=== PATIENT | female | born 1980 | race Two or more races ===

== ENCOUNTER 2018-07-16 03:09 | Inpatient (IN) | payer BC ==
[2018-07-16] MEDS ORDERED: Sodium Chloride 0.9% 10 ML Syringe FLUSH PRN (03:41)
[2018-07-16] MEDS ORDERED: Tranexamic Acid 1,000 MG in Sodium Chloride 0.9% 100 ML IV PRN (03:41)
[2018-07-16] MEDS ORDERED: Methylergonovine 0.2 MG/1 ML Amp IM PRN (03:41)
[2018-07-16] MEDS ORDERED: Carboprost Tromethamine 250 MCG/1 ML Amp IM PRN (03:41)
[2018-07-16] MEDS ORDERED: Nalbuphine 10 MG/1 ML Vial IVPUSH PRN (03:41)
[2018-07-16] MEDS ORDERED: Terbutaline 1 MG/ML SDV SUBCUT PRN (03:41)
[2018-07-16] MEDS ORDERED: Water For Irrigation,Sterile 1,000 ML Container IRR PRN (03:41)
[2018-07-16] MEDS ORDERED: Misoprostol 200 MCG Tab PO PRN (03:41)
[2018-07-16] MEDS ORDERED: Lidocaine 1% 50 ML MDV INJECT PRN (03:41)
[2018-07-16] MEDS ORDERED: Sodium Chloride 0.9% 2.5 ML Syringe FLUSH PRN (03:41)
[2018-07-16] MEDS ORDERED: Oxytocin/0.9 % Sodium Chloride 30 UNIT/500 ML BAG IV SCH ×2 (03:45)
[2018-07-16] MEDS: Misoprostol 25 MCG (1/4 of 100 MCG) Tab VAG PRN ×4 (04:29→17:49)
[2018-07-16] MEDS: Misoprostol 25 MCG (1/4 of 100 MCG) Tab PO PRN ×4 (04:32→17:52)
[2018-07-16] MEDS ORDERED: hydrOXYzine Pamoate 25 MG Cap PO ONE (04:56)
--- NOTE | 2018-07-16 07:41 | PCM.LDHP ---
L&D History of Present Illness - General Date of Service: 07/16/18 Admit Problem/Dx: Patient Status Order with Admit Dx/Problem 07/16/18 03:41 Patient Status [ADT] Routine Admission Diagnosis/Problem Admission Diagnosis/Problem 07/16/18 07:36 37yo EDC 07/21/2018 39 2/7wks AB+, RI, GBS neg. IOL due to GDMA2. Source of Information: Patient History Limitations: Reports: No Limitations - History of Present Illness Improves with: Reports: None Worsens with: Reports: None Associated Symptoms: Reports: N - Related Data Allergies/Adverse Reactions: Allergies Allergy/AdvReac Type Severity Reaction Status Date / Time No Known Allergies Allergy Verified 07/16/18 03:39 Home Medications: Home Meds Pnv No.122/Iron/Folic Acid [ Multi Tablet] 1 tab PO DAILY 05/28/18 [ History] glyBURIDE [Glyburide] 2.5 mg PO TID 06/18/18 [History] Acetaminophen [Tylenol Extra Strength] 1 - 2 tab PO PRN 07/16/18 [History] Past Medical History - Past Health History Medical/Surgical History: Denies Medical/Surgical History HEENT History: Reports: Impaired Vision, Other (See Below) Other HEENT History: wears glasses CHIEF GAUGER History: Reports: , Spontaneous Psychiatric History: Reports: Depression Endocrine/Metabolic History: Reports: Diabetes, Gestational, Obesity/BMI 30+ - Infectious Disease History Infectious Disease History: Reports: Chicken Pox - Past Surgical History HEENT Surgical History: Reports: None Endocrine Surgical History: Reports: None Social & Family History - Family History Family Medical History: Noncontributory Cardiac: Reports: Other (See Below) Other Cardiac Family History: heart disease Respiratory: Reports: Asthma OBGYN: Reports: Neurological: Reports: CVA Endocrine/Metabolic: Reports: Diabetes, type II Oncologic: Reports: Other (See Below) Other Oncologic Family History: grandmother has cancer in her spine - Tobacco Use Smoking Status *Q: Never Smoker - Caffeine Use Caffeine Use: Reports: Coffee, Energy Drinks, Tea - Recreational Drug Use Recreational Drug Use: No H&P Review of Systems - Review of Systems: Review Of Systems: See Below General: Reports: No Symptoms HEENT: Reports: No Symptoms Pulmonary: Reports: No Symptoms Cardiovascular: Reports: No Symptoms Gastrointestinal: Reports: No Symptoms Genitourinary: Reports: No Symptoms Musculoskeletal: Reports: No Symptoms Skin: Reports: No Symptoms Psychiatric: Reports: No Symptoms Neurological: Reports: No Symptoms Hematologic/Lymphatic: Reports: No Symptoms Immunologic: Reports: No Symptoms L&D Exam - Exam Exam: See Below - Vital Signs Weight: 121.109 kg - OB Specific Contraction Intensity: Mild Movement: Active Heart Tones: Present Heart Rate (FHR) Variability: Moderate (6-25 bmp) Presentation: Vertex - Sommers Score Sommers Score Cervix Position: Posterior Sommers Score Consistency: Soft Sommers Score Effacement: 31-50% Sommers Score Dilation: 1-2 cm Sommers Score 's Station: -2 Sommers Score Total: 5 - Exam General: Alert, Oriented HEENT: Hearing Intact Lungs: Clear to Auscultation, Normal Respiratory Effort Cardiovascular: Regular Rate, Regular Rhythm, Normal S1, Normal S2 GI/Abdominal Exam: Soft, Non-Tender Rectal Exam: Deferred Genitourinary: Normal external exam, Cervical dilitation Back Exam: Normal Inspection, Full Range of Motion Extremities: Normal Inspection, Normal Range of Motion, Non-Tender, No Pedal Edema, Normal Capillary Refill Skin: Warm, Dry, Intact Neurological: Cranial Nerves Intact, Reflexes Equal Bilateral, Strength Equal Bilateral, Normal Speech, Normal Tone Psychiatric: Alert, Normal Affect, Normal Mood - Patient Data Lab Results Last 24 hrs: Laboratory Results - last 24 hr 07/16/18 07/16/18 07/16/18 Range/Units 03:55 03:55 04:37 WBC 10.46 (4.0-11.0) K/uL RBC 4.57 (4.30-5.90) M/uL Hgb 11.5 L (12.0-16.0) g/dL Hct 35.7 L (36.0-46.0) % MCV 78.1 L (80.0-98.0) fL MCH 25.2 L (27.0-32.0) pg MCHC 32.2 (31.0-37.0) g/dL RDW Std Deviation 44.8 (28.0-62.0) fl RDW Coeff of Lisa 16 H (11.0-15.0) % Plt Count 288 (150-400) K/uL MPV 10.90 (7.40-12.00) fL Nucleated RBC % 0.0 /100WBC Nucleated RBCs # 0 K/uL POC Glucose 73 (60-110) mg/dL Blood Type AB POSITIVE Antibody Screen NEGATIVE Result Diagrams: 07/16/18 03:55 - Problem List (1) Supervision of normal IUP (intrauterine ) in primigravida SNOMED Code(s): 55951826, 572989012, 363479263, 894108106 ICD Code: Z34.00 - ENCNTR FOR SUPRVSN OF NORMAL FIRST , UNSP TRIMESTER Status: Acute Priority: High Current Visit: Yes Qualifiers: Trimester: third trimester Qualified Code(s): Z34.03 - Encounter for supervision of normal first , third trimester (2) Insulin controlled gestational diabetes mellitus (GDM) in third trimester SNOMED Code(s): 73447783 ICD Code: O24.414 - GESTATIONAL DIABETES IN , INSULIN CONTROLLED Status: Acute Priority: High Current Visit: Yes Problem List Initiated/Reviewed/Updated: Yes Orders Last 24hrs: Active Orders 24 hr Category Date Time Status Patient Status [ADT] Routine ADT 07/16/18 03:41 Active Bedrest Bathroom Privileges [RC] ASDIRECTED Care 07/16/18 03:41 Active Communication Order [RC] ASDIRECTED Care 07/16/18 03:41 Active Communication Order [RC] ASDIRECTED Care 07/16/18 03:41 Active Communication Order [RC] ASDIRECTED Care 07/16/18 03:41 Active Heart Tones [RC] CONTINUOUS Care 07/16/18 03:41 Active Non Stress Test [RC] PER UNIT ROUTINE Care 07/16/18 03:41 Active May Shower [RC] ASDIRECTED Care 07/16/18 03:41 Active Notify Provider [RC] PRN Care 07/16/18 03:41 Active Notify Provider [RC] PRN Care 07/16/18 03:41 Active Notify Provider [RC] PRN Care 07/16/18 03:41 Active Notify Provider [RC] STAT Care 07/16/18 03:41 Active Oxygen Therapy [RC] ASDIRECTED Care 07/16/18 03:41 Active Up ad Mimi [RC] ASDIRECTED Care 07/16/18 03:41 Active Vaginal Exam [RC] PRN Care 07/16/18 03:41 Active Vaginal Exam [RC] PRN Care 07/16/18 03:41 Active Vital Signs [RC] PER UNIT ROUTINE Care 07/16/18 03:41 Active Vital Signs [RC] PER UNIT ROUTINE Care 07/16/18 03:41 Active Regular Diet [DIET] Diet 07/16/18 Breakfast Active Carboprost Tromethamine [Hemabate DS] Med 07/16/18 03:41 Active 250 mcg IM ASDIRECTED PRN Lactated Ringers [Ringers, Lactated] 1,000 ml Med 07/16/18 03:45 Active IV ASDIRECTED Lidocaine 1% [Xylocaine 1%] Med 07/16/18 03:41 Active 50 ml INJECT ONETIME PRN Methylergonovine [Methergine] Med 07/16/18 03:41 Active 0.2 mg IM ASDIRECTED PRN Nalbuphine [Nubain] Med 07/16/18 03:41 Active 10 mg IVPUSH Q1H PRN Oxytocin/0.9 % Sodium Chloride [Oxytocin 30 Unit/500 ML Med 07/16/18 03:45 Active -NS] 30 unit in 500 ml IV TITRATE Oxytocin/0.9 % Sodium Chloride [Oxytocin 30 Unit/500 ML Med 07/16/18 03:45 Active -NS] 30 unit in 500 ml IV TITRATE Sodium Chloride 0.9% [Saline Flush] Med 07/16/18 03:41 Active 10 ml FLUSH ASDIRECTED PRN Sodium Chloride 0.9% [Saline Flush] Med 07/16/18 03:41 Active 2.5 ml FLUSH ASDIRECTED PRN Terbutaline [Brethine] Med 07/16/18 03:41 Active 0.25 mg SUBCUT ASDIRECTED PRN Tranexamic Acid [Cyklokapron] 1,000 mg Med 07/16/18 03:41 Active Sodium Chloride 0.9% [Normal Saline] 100 ml IV ONETIME Water For Irrigation,Sterile [Sterile Water for Med 07/16/18 03:41 Active Irrigation] 1,000 ml IRR ASDIRECTED PRN miSOPROStol [Cytotec] Med 07/16/18 03:41 Active 200 mcg PO ONETIME PRN miSOPROStol [Cytotec] Med 07/16/18 03:41 Active 25 mcg PO Q4H PRN miSOPROStol [Cytotec] Med 07/16/18 03:41 Active 25 mcg VAG Q4H PRN Scalp Electrode [WOMSER] Per Unit Routine Oth 07/16/18 03:41 Ordered Medication Administration Instruction [OM.PC] Q3H Oth 07/16/18 03:45 Ordered Peripheral IV Insertion Adult [OM.PC] Routine Oth 07/16/18 03:41 Ordered Resuscitation Status Routine Resus Stat 07/16/18 03:41 Ordered Medication Orders Carboprost Tromethamine (Hemabate Ds) 250 mcg IM ASDIRECTED PRN PRN Reason: Post Hemorrhage Lactated Ringer's (Ringers, Lactated) 1,000 mls @ 150 mls/hr IV ASDIRECTED SHIMON Oxytocin/Sodium Chloride (Oxytocin 30 Unit/500 Ml-Ns) 30 unit in 500 mls @ 999 mls/hr IV TITRATE SHIMON Oxytocin/Sodium Chloride (Oxytocin 30 Unit/500 Ml-Ns) 30 unit in 500 mls @ 2 mls/hr IV TITRATE SHIMON; Protocol Tranexamic Acid 1,000 mg/ (Sodium Chloride) 110 mls @ 660 mls/hr IV ONETIME PRN PRN Reason: Bleeding Lidocaine HCl (Xylocaine 1%) 50 ml INJECT ONETIME PRN PRN Reason: Laceration repair Methylergonovine Maleate (Methergine) 0.2 mg IM ASDIRECTED PRN PRN Reason: Post Hemorrhage Misoprostol (Cytotec) 200 mcg PO ONETIME PRN PRN Reason: Post Hemorrhage Misoprostol (Cytotec) 25 mcg VAG Q4H PRN PRN Reason: Cervical Ripening Last Admin: 07/16/18 04:29 Dose: 25 mcg Misoprostol (Cytotec) 25 mcg PO Q4H PRN PRN Reason: Cervical Ripening Last Admin: 07/16/18 04:32 Dose: 25 mcg Nalbuphine HCl (Nubain) 10 mg IVPUSH Q1H PRN PRN Reason: Pain (severe 7-10) Sodium Chloride (Saline Flush) 10 ml FLUSH ASDIRECTED PRN PRN Reason: Keep Vein Open Sodium Chloride (Saline Flush) 2.5 ml FLUSH ASDIRECTED PRN PRN Reason: Keep Vein Open Sterile Water (Sterile Water For Irrigation) 1,000 ml IRR ASDIRECTED PRN PRN Reason: delivery Terbutaline Sulfate (Brethine) 0.25 mg SUBCUT ASDIRECTED PRN PRN Reason: Tacysystole Assessment/Plan Comment:: IOL A: 37yo EDC 07/21/2018 39 2/7wks AB+, RI, GBS neg. IOL due to GDMA2. P: Admit, cytotec to pitocin, epidural prn, anticipate , Dr Martin updated
[2018-07-16] MEDS: Lactated Ringers 1,000 ML IV SCH (22:50)
[2018-07-17] MEDS ORDERED: Acetaminophen 500 MG Tab PO PRN (07:33)
[2018-07-17] MEDS: Lactated Ringers 1,000 ML IV SCH ×3 (07:53→16:00)
[2018-07-17] MEDS ORDERED: Ropivacaine 0.2% 2 MG/ML 20 ML SDV ONE (10:11)
--- NOTE | 2018-07-17 10:48 | PCM.PREANE ---
Preanesthetic Assessment - Procedure Proposed Procedure: labor epidural - Anesthesia/Transfusion/Family Hx Anesthesia History: Prior Anesthesia Without Reaction Transfusion History: No Prior Transfusion(s) - Review of Systems Other: Reports: None - Physical Assessment Height: 5 ft 5 in Weight: 121.109 kg ASA Class: 2 Mental Status: Alert & Oriented x3 Airway Class: Mallampati = 1 Dentition: Reports: Normal Dentition Thyro-Mental Finger Breadths: 3 Mouth Opening Finger Breadths: 3 ROM/Head Extension: Full - Lab Values: Laboratory Last Values WBC 10.46 K/uL (4.0-11.0) 07/16/18 03:55 RBC 4.57 M/uL (4.30-5.90) 07/16/18 03:55 Hgb 11.5 g/dL (12.0-16.0) L 07/16/18 03:55 Hct 35.7 % (36.0-46.0) L 07/16/18 03:55 MCV 78.1 fL (80.0-98.0) L 07/16/18 03:55 MCH 25.2 pg (27.0-32.0) L 07/16/18 03:55 MCHC 32.2 g/dL (31.0-37.0) 07/16/18 03:55 RDW Std Deviation 44.8 fl (28.0-62.0) 07/16/18 03:55 RDW Coeff of Lisa 16 % (11.0-15.0) H 07/16/18 03:55 Plt Count 288 K/uL (150-400) 07/16/18 03:55 MPV 10.90 fL (7.40-12.00) 07/16/18 03:55 Nucleated RBC % 0.0 /100WBC 07/16/18 03:55 Nucleated RBCs # 0 K/uL 07/16/18 03:55 POC Glucose 86 mg/dL (60-110) 07/17/18 07:46 Blood Type AB POSITIVE 07/16/18 03:55 Antibody Screen NEGATIVE 07/16/18 03:55 - Allergies Allergies/Adverse Reactions: Allergies Allergy/AdvReac Type Severity Reaction Status Date / Time No Known Allergies Allergy Verified 07/16/18 03:39 - Blood Blood Available: Yes Product(s) Available: PRBC - Acknowledgements Anesthesia Type Planned: Epidural Pt an Appropriate Candidate for the Planned Anesthesia: Yes Alternatives and Risks of Anesthesia Discussed w Pt/Guardian: Yes Pt/Guardian Understands and Agrees with Anesthesia Plan: Yes PreAnesthesia Questionnaire - Past Health History Medical/Surgical History: Denies Medical/Surgical History HEENT History: Reports: Impaired Vision, Other (See Below) Other HEENT History: wears glasses TWISTER IN History: Reports: , Spontaneous Psychiatric History: Reports: Depression Endocrine/Metabolic History: Reports: Diabetes, Gestational, Obesity/BMI 30+ - Infectious Disease History Infectious Disease History: Reports: Chicken Pox - Past Surgical History HEENT Surgical History: Reports: None Endocrine Surgical History: Reports: None - SUBSTANCE USE Smoking Status *Q: Never Smoker Recreational Drug Use History: No - HOME MEDS Home Medications: Home Meds Pnv No.122/Iron/Folic Acid [ Multi Tablet] 1 tab PO DAILY 05/28/18 [ History] glyBURIDE [Glyburide] 2.5 mg PO TID 06/18/18 [History] Acetaminophen [Tylenol Extra Strength] 1 - 2 tab PO PRN 07/16/18 [History] - CURRENT (IN HOUSE) MEDS Current Meds: Current Medications Acetaminophen (Tylenol Extra Strength) 1,000 mg PO Q6H PRN PRN Reason: Pain Last Admin: 07/17/18 08:14 Dose: 1,000 mg Carboprost Tromethamine (Hemabate Ds) 250 mcg IM ASDIRECTED PRN PRN Reason: Post Hemorrhage Lactated Ringer's (Ringers, Lactated) 1,000 mls @ 150 mls/hr IV ASDIRECTED SHIMON Last Admin: 07/17/18 10:29 Dose: 999 mls/hr Oxytocin/Sodium Chloride (Oxytocin 30 Unit/500 Ml-Ns) 30 unit in 500 mls @ 999 mls/hr IV TITRATE SHIMON Oxytocin/Sodium Chloride (Oxytocin 30 Unit/500 Ml-Ns) 30 unit in 500 mls @ 2 mls/hr IV TITRATE SHIMON; Protocol Last Titration: 07/17/18 10:25 Dose: 10 munits/min, 10 mls/hr Tranexamic Acid 1,000 mg/ (Sodium Chloride) 110 mls @ 660 mls/hr IV ONETIME PRN PRN Reason: Bleeding Lidocaine HCl (Xylocaine 1%) 50 ml INJECT ONETIME PRN PRN Reason: Laceration repair Methylergonovine Maleate (Methergine) 0.2 mg IM ASDIRECTED PRN PRN Reason: Post Hemorrhage Misoprostol (Cytotec) 200 mcg PO ONETIME PRN PRN Reason: Post Hemorrhage Misoprostol (Cytotec) 25 mcg VAG Q4H PRN PRN Reason: Cervical Ripening Last Admin: 07/16/18 17:49 Dose: 25 mcg Misoprostol (Cytotec) 25 mcg PO Q4H PRN PRN Reason: Cervical Ripening Last Admin: 07/16/18 17:52 Dose: 25 mcg Nalbuphine HCl (Nubain) 10 mg IVPUSH Q1H PRN PRN Reason: Pain (severe 7-10) Last Admin: 07/16/18 23:03 Dose: 10 mg Sodium Chloride (Saline Flush) 10 ml FLUSH ASDIRECTED PRN PRN Reason: Keep Vein Open Sodium Chloride (Saline Flush) 2.5 ml FLUSH ASDIRECTED PRN PRN Reason: Keep Vein Open Sterile Water (Sterile Water For Irrigation) 1,000 ml IRR ASDIRECTED PRN PRN Reason: delivery Terbutaline Sulfate (Brethine) 0.25 mg SUBCUT ASDIRECTED PRN PRN Reason: Tacysystole Discontinued Medications Hydroxyzine Pamoate (Vistaril) 50 mg PO ONETIME ONE Stop: 07/16/18 04:57 Last Admin: 07/16/18 05:04 Dose: 50 mg Fentanyl/Bupivacaine HCl (Ngyprfdr-Nxxuv-Sz 2 Mcg/Ml-0.125%) Confirm Administered Dose 100 mls @ as directed EP .STK-MED ONE Stop: 07/17/18 10:12 Ropivacaine (Naropin 0.2%) Confirm Administered Dose 20 ml .ROUTE .STK-MED ONE Stop: 07/17/18 10:12
[2018-07-17] MEDS ORDERED: Sodium Chloride 0.9% 2.5 ML Syringe FLUSH PRN (16:58)
[2018-07-17] MEDS ORDERED: Sodium Chloride 0.9% 10 ML Syringe FLUSH PRN (16:58)
[2018-07-17] MEDS ORDERED: Citric Acid/Sodium Citrate Solution 30 ML Cup PO ONE (16:58)
[2018-07-17] MEDS ORDERED: ceFAZolin 2 GM in Premix Bag 1 BAG IV ONE (16:58)
[2018-07-17] MEDS ORDERED: Oxytocin/0.9 % Sodium Chloride 30 UNIT/500 ML BAG IV SCH (17:00)
[2018-07-17] MEDS ORDERED: Lactated Ringers 1,000 ML IV SCH ×2 (17:00→18:45)
[2018-07-17] MEDS ORDERED: Morphine PF 1 MG/ML Amp ONE (17:18)
[2018-07-17] MEDS ORDERED: Bupivacaine 0.5% 10 ML SDV ONE (17:28)
[2018-07-17] MEDS ORDERED: Citric Acid/Sodium Citrate Solution 30 ML Cup ONE (17:28)
[2018-07-17] MEDS ORDERED: Oxytocin/0.9 % Sodium Chloride 30 UNIT/500 ML BAG ONE (17:28)
[2018-07-17] MEDS ORDERED: ceFAZolin/Dextrose,Iso-Osmotic 2 GM/50 ML Duplex Bag IV ONE (17:56)
[2018-07-17] MEDS ORDERED: Octyl 2-Cyanoacrylate 1 Tube ONE (17:57)
[2018-07-17] MEDS ORDERED: Midazolam 1 MG/ML 2 ML SDV ONE (18:00)
[2018-07-17] MEDS ORDERED: Acetaminophen/oxyCODONE 325-5 MG Tab PO PRN ×2 (18:33→18:37)
[2018-07-17] MEDS ORDERED: Bisacodyl 10 MG Supp RECTAL PRN (18:33)
[2018-07-17] MEDS ORDERED: Lanolin 100% Cream 7 GM Tube TOP PRN (18:33)
[2018-07-17] MEDS ORDERED: diphenhydrAMINE 50 MG/ML SDV IVPUSH PRN ×2 (18:33→18:36)
[2018-07-17] MEDS ORDERED: Ondansetron 4 MG/2 ML SDV IV PRN (18:33)
--- NOTE | 2018-07-17 18:35 | PCM.OPNOTE ---
- General Post-Op/Procedure Note Date of Surgery/Procedure: 07/17/18 Operative Procedure(s): Primary C/section. Pre Op Diagnosis: IUP 39wk faild induction Post-Op Diagnosis: Same Anesthesia Technique: Epidural Primary Surgeon: Andres Martin Occupational Therapy Supervisor: Bernice Stewart EBL in mLs: 700 Complications: None Condition: Good
[2018-07-17] MEDS ORDERED: Nalbuphine 10 MG/1 ML Vial IVPUSH PRN (18:36)
[2018-07-17] MEDS ORDERED: Naloxone 0.4 MG/ML Syringe IVPUSH PRN (18:36)
[2018-07-17] MEDS ORDERED: fentaNYL 100 MCG/2 ML SDV IVPUSH PRN (18:37)
[2018-07-17] MEDS: Ketorolac 30 MG/ML SDV IVPUSH SCH (19:09)
--- NOTE | 2018-07-17 20:00 | PCM.POSTAN ---
POST ANESTHESIA ASSESSMENT - MENTAL STATUS Mental Status: Alert, Oriented - RESPIRATORY Respiratory Status: Respiratory Rate WNL, Airway Patent, O2 Saturation Stable - CARDIOVASCULAR CV Status: Pulse Rate WNL, Blood Pressure Stable - GASTROINTESTINAL GI Status: No Symptoms - POST OP HYDRATION Hydration Status: Adequate & Stable
--- NOTE | 2018-07-17 23:33 | OR ---
SURGEON: Andres Martin MD DATE OF PROCEDURE: PREOPERATIVE DIAGNOSES: 1. Intrauterine at 39 weeks. 2. Advanced maternal age. 3. Gestational diabetes. 4. Failed induction. POSTOPERATIVE DIAGNOSES: 1. Intrauterine at 39 weeks. 2. Advanced maternal age. 3. Gestational diabetes. 4. Failed induction. OPERATION PERFORMED: Primary low-transverse section. BASKETBALL COMMENTATOR: Bernice Stewart CNM. METAL FITTERS AND MACHINISTS: Fabiola Mccauley MD. ANESTHESIA: Zuleyka Dillard and Andrei White M.D. ESTIMATED BLOOD LOSS: 700 mL. COMPLICATIONS: None. FINDINGS: Female fetus. score reported to be 8 and 9. Weight is not available. INDICATION FOR SURGERY: This patient is 37. She had a gestational diabetes. She is followed in our clinic by me and nurse talent acquisition administrator. She is admitted at 39 weeks for elective induction. The patient after 2-day induction with Cytotec, it is not even close for delivery, did not dilate and the baby's head was ballotable. A decision was made to do a primary low-transverse section. PROCEDURE IN DETAIL: The patient was brought to the OR, properly identified. After adequate level of epidural anesthesia, with a Ferreira catheter in the bladder the patient was prepped and draped in sterile fashion. As usual, low transverse Pfannenstiel skin incision was done. Lakshmi's fascia, rectus fascia was opened in direction of the incision. The 2 recti muscles were , peritoneal cavity was entered. Bladder flap was raised in the usual manner, pushing the bladder away from the lower uterine segment. Low transverse uterine incision was done and extended manually with the hand and fetus was in a vertex position, delivered without any problem, handed to the nurse resuscitator headed by Dr. Mccauley. The fetus was cried immediately. score reported to be 8 and 9. The placenta delivered spontaneous, complete, and intact without any problem and then repair of the lower uterine segment was done with 2-0 Vicryl continuous interlocking in 2 layers. Reperitonealization done with 3-0 Vicryl continuous. The peritoneal cavity evacuated completely within from all blood and blood clot and closed with 3-0 Vicryl continuous. The rectus fascia was closed with #1 PDS double strand continuous. Lakshmi's fascia with 3-0 Vicryl continuous and the skin closed with 3-0 Vicryl continuous and Akbar needle on a subcuticular fashion. Instrument and sponge counts were correct. The patient tolerated the procedure well, went to recovery room in stable general condition. ERNESTO CRESPO /[id number]
[2018-07-18] MEDS: Ketorolac 30 MG/ML SDV IVPUSH SCH ×4 (01:00→18:55)
--- NOTE | 2018-07-18 07:34 | PCM.PNPP ---
- General Info Date of Service: 07/18/18 Admission Dx/Problem (Free Text): Patient Status Order with Admit Dx/Problem 07/16/18 03:41 Patient Status [ADT] Routine Admission Diagnosis/Problem Admission Diagnosis/Problem 07/16/18 07:36 37yo EDC 07/21/2018 39 2/7wks AB+, RI, GBS neg. IOL due to GDMA2. Functional Status: Reports: Pain Controlled, Tolerating Diet, Ambulating, Other (bazzi to bed side bag) - Review of Systems General: Reports: No Symptoms HEENT: Reports: No Symptoms Pulmonary: Reports: No Symptoms Cardiovascular: Reports: No Symptoms Gastrointestinal: Reports: No Symptoms Genitourinary: Reports: No Symptoms Musculoskeletal: Reports: No Symptoms Skin: Reports: No Symptoms Neurological: Reports: No Symptoms Psychiatric: Reports: No Symptoms - General Info Date of Service: 07/18/18 - Patient Data Vital Signs - Most Recent: Last Vital Signs Temp 36.6 C 07/18/18 04:00 Pulse 89 07/18/18 07:00 Resp 20 07/18/18 07:00 BP 126/65 07/18/18 00:00 Pulse Ox 95 07/18/18 07:00 Weight - Most Recent: 121.109 kg I&O - Last 24 Hours: Intake & Output 07/17/18 07/18/18 07/18/18 22:59 06:59 14:59 Intake Total 2140 1631 Output Total 900 770 Balance 1240 861 Lab Results - Last 24 Hours: Laboratory Results - last 24 hr 07/17/18 07/17/18 07/18/18 Range/Units 07:46 14:17 05:55 Hgb 9.6 L (12.0-16.0) g/dL Hct 29.5 L (36.0-46.0) % POC Glucose 86 76 (60-110) mg/dL Med Orders - Current: Current Medications Bisacodyl (Dulcolax) 10 mg RECTAL ONETIME PRN PRN Reason: Constipation Diphenhydramine HCl (Benadryl) 25 mg IVPUSH Q6H PRN PRN Reason: Itching or Nausea Diphenhydramine HCl (Benadryl) 25 mg IVPUSH Q4H PRN PRN Reason: Itching Stop: 07/18/18 18:36 Docusate Sodium (Colace) 100 mg PO BID [facility] Emollient Ointment (Lansinoh Hpa) 0 gm TOP ASDIRECTED PRN PRN Reason: Sore Nipples Fentanyl (Sublimaze) 25 - 50 mcg IVPUSH Q30M PRN PRN Reason: Pain Oxytocin/Sodium Chloride (Oxytocin 30 Unit/500 Ml-Ns) 30 unit in 500 mls @ 999 mls/hr IV TITRATE [facility] Tranexamic Acid 1,000 mg/ (Sodium Chloride) 110 mls @ 660 mls/hr IV ONETIME PRN PRN Reason: Bleeding Lactated Ringer's (Ringers, Lactated) 1,000 mls @ 500 mls/hr IV BOLUS [facility] Oxytocin/Sodium Chloride (Oxytocin 30 Unit/500 Ml-Ns) 30 unit in 500 mls @ 250 mls/hr IV TITRATE [facility] Lactated Ringer's (Ringers, Lactated) 1,000 mls @ 125 mls/hr IV ASDIRECTED [facility] Last Admin: 07/17/18 21:15 Dose: 125 mls/hr Ibuprofen (Motrin) 800 mg PO Q8H PRN PRN Reason: mild pain or fever Ketorolac Tromethamine (Toradol) 30 mg IVPUSH Q6H [facility] Stop: 07/18/18 18:46 Last Admin: 07/18/18 07:18 Dose: 30 mg Methylergonovine Maleate (Methergine) 0.2 mg IM ASDIRECTED PRN PRN Reason: Post Hemorrhage Misoprostol (Cytotec) 200 mcg PO ONETIME PRN PRN Reason: Post Hemorrhage Nalbuphine HCl (Nubain) 5 mg IVPUSH Q3H PRN PRN Reason: Pruritis Stop: 07/18/18 18:36 Naloxone HCl (Narcan) 0.1 mg IVPUSH ONETIME PRN PRN Reason: Other Stop: 07/18/18 18:37 Ondansetron HCl (Zofran) 4 mg IV Q4H PRN PRN Reason: Nausea/Vomiting Oxycodone/Acetaminophen (Percocet 325-5 Mg) 1 tab PO Q4H PRN PRN Reason: Pain (moderate 4-6) Oxycodone/Acetaminophen (Percocet 325-5 Mg) 2 tab PO Q4H PRN PRN Reason: Pain (moderate 4-6) Sodium Chloride (Saline Flush) 10 ml FLUSH ASDIRECTED PRN PRN Reason: Keep Vein Open Sodium Chloride (Saline Flush) 2.5 ml FLUSH ASDIRECTED PRN PRN Reason: Keep Vein Open Discontinued Medications Acetaminophen (Tylenol Extra Strength) 1,000 mg PO Q6H PRN PRN Reason: Pain Last Admin: 07/17/18 08:14 Dose: 1,000 mg Bupivacaine HCl (Sensorcaine-Mpf 0.5%) Confirm Administered Dose 20 ml .ROUTE .STK-MED ONE Stop: 07/17/18 17:29 Carboprost Tromethamine (Hemabate Ds) 250 mcg IM ASDIRECTED PRN PRN Reason: Post Hemorrhage Cefazolin Sodium/Dextrose (Ancef) Confirm Administered Dose 2 gm IV .STK-MED ONE Stop: 07/17/18 17:57 Citric Acid/Sodium Citrate (Bicitra Solution) 30 ml PO ONETIME ONE Stop: 07/17/18 16:59 Citric Acid/Sodium Citrate (Bicitra Solution) Confirm Administered Dose 30 ml .ROUTE .STK-MED ONE Stop: 07/17/18 17:29 Last Admin: 07/17/18 17:38 Dose: 30 ml Hydroxyzine Pamoate (Vistaril) 50 mg PO ONETIME ONE Stop: 07/16/18 04:57 Last Admin: 07/16/18 05:04 Dose: 50 mg Lactated Ringer's (Ringers, Lactated) 1,000 mls @ 150 mls/hr IV ASDIRECTED [facility] Last Infusion: 07/17/18 17:00 Dose: 999 mls/hr Oxytocin/Sodium Chloride (Oxytocin 30 Unit/500 Ml-Ns) 30 unit in 500 mls @ 2 mls/hr IV TITRATE [facility]; Protocol Last Titration: 07/17/18 14:55 Dose: 20 munits/min, 20 mls/hr Fentanyl/Bupivacaine HCl (Uajuderd-Ilthl-Fz 2 Mcg/Ml-0.125%) Confirm Administered Dose 100 mls @ as directed EP .STK-MED ONE Stop: 07/17/18 10:12 Cefazolin Sodium/Dextrose 2 gm (/ Premix) 50 mls @ 100 mls/hr IV ONETIME ONE Stop: 07/17/18 17:27 Oxytocin/Sodium Chloride (Oxytocin 30 Unit/500 Ml-Ns) Confirm Administered Dose 30 unit in 500 mls @ as directed .ROUTE .STK-MED ONE Stop: 07/17/18 17:29 Lidocaine HCl (Xylocaine 1%) 50 ml INJECT ONETIME PRN PRN Reason: Laceration repair Midazolam HCl (Versed 1 Mg/Ml) Confirm Administered Dose 2 mg .ROUTE .STK-MED ONE Stop: 07/17/18 18:01 Misoprostol (Cytotec) 25 mcg VAG Q4H PRN PRN Reason: Cervical Ripening Last Admin: 07/16/18 17:49 Dose: 25 mcg Misoprostol (Cytotec) 25 mcg PO Q4H PRN PRN Reason: Cervical Ripening Last Admin: 07/16/18 17:52 Dose: 25 mcg Morphine Sulfate (Duramorph Pf) Confirm Administered Dose 1 mg .ROUTE .STK-MED ONE Stop: 07/17/18 17:19 Nalbuphine HCl (Nubain) 10 mg IVPUSH Q1H PRN PRN Reason: Pain (severe 7-10) Last Admin: 07/16/18 23:03 Dose: 10 mg Octyl Cyanoacrylate (Dermabond Advance) Confirm Administered Dose 1 applic .ROUTE .STK-MED ONE Stop: 07/17/18 17:58 Oxycodone/Acetaminophen (Percocet 325-5 Mg) 1 - 2 tab PO Q6H PRN PRN Reason: Pain Stop: 07/19/18 14:00 Ropivacaine (Naropin 0.2%) Confirm Administered Dose 20 ml .ROUTE .STK-MED ONE Stop: 07/17/18 10:12 Sodium Chloride (Saline Flush) 10 ml FLUSH ASDIRECTED PRN PRN Reason: Keep Vein Open Sodium Chloride (Saline Flush) 2.5 ml FLUSH ASDIRECTED PRN PRN Reason: Keep Vein Open Sterile Water (Sterile Water For Irrigation) 1,000 ml IRR ASDIRECTED PRN PRN Reason: delivery Terbutaline Sulfate (Brethine) 0.25 mg SUBCUT ASDIRECTED PRN PRN Reason: Tacysystole - Infant Interaction Disposition, : in Room with Family Infant Interaction: Holding Feeding: Breastfed ; Nursed Well Support Person: Significant Other - Recovery Exam Fundal Tone: Firm Fundal Level: 1 Fingerbreadths Below Umbilicus Fundal Placement: Midline Lochia Amount: Scant Lochia Color: Rubra/Red Perineum Description: Intact, Minimal Bruising/Swelling Episiotomy/Laceration: None Bladder Status: Nonpalpable, Indwelling Catheter in Place Urinary Elimination: Indwelling Catheter - Exam General: Alert, Oriented, Cooperative, No Acute Distress Lungs: Clear to Auscultation, Normal Respiratory Effort Cardiovascular: Regular Rate, Regular Rhythm, No Murmurs GI/Abdominal Exam: Soft, Non-Tender Extremities: Normal Inspection Skin: Warm, Dry, Intact Wound/Incisions: Healing Well, Dressing Dry and Intact Neurological: No New Focal Deficit, Normal Speech, Normal Tone, Strength Equal Bilateral Psy/Mental Status: Alert, Normal Affect, Normal Mood - Problem List & Annotations (1) Supervision of normal IUP (intrauterine ) in primigravida SNOMED Code(s): 58345688, 208898027, 910871374, 735149708 Code(s): Z34.00 - ENCNTR FOR SUPRVSN OF NORMAL FIRST , UNSP TRIMESTER Status: Acute Priority: High Current Visit: Yes Qualifiers: Trimester: third trimester Qualified Code(s): Z34.03 - Encounter for supervision of normal first , third trimester (2) Insulin controlled gestational diabetes mellitus (GDM) in third trimester SNOMED Code(s): 71462904 Code(s): O24.414 - GESTATIONAL DIABETES IN , INSULIN CONTROLLED Status: Acute Priority: High Current Visit: Yes (3) delivery delivered SNOMED Code(s): 978431996 Code(s): O82 - ENCOUNTER FOR DELIVERY WITHOUT INDICATION Status: Acute Priority: High Current Visit: Yes - Problem List Review Problem List Initiated/Reviewed/Updated: Yes - Plan Plan:: IOL A: 37yo EDC 07/21/2018 39 2/7wks AB+, RI, GBS neg. IOL due to GDMA2. P: Admit, cytotec to pitocin, epidural prn, anticipate , Dr Martin updated PPD#1 A: post op day 1 PCS for Failed IOL., VSS, AF, Dressing intact no drainage noted , lochia small, stable. P: continue pp plan of care
[2018-07-18] MEDS: Docusate Sodium 100 MG Cap PO SCH ×3 (09:21→21:23)
--- NOTE | 2018-07-18 18:30 | PCM48HPAN ---
Post Anesthesia Note - EVALUATION WITHIN 48HRS OF ANESTHETIC Vital Signs in Normal Range: Yes Patient Participated in Evaluation: Yes Respiratory Function Stable: Yes Airway Patent: Yes Cardiovascular Function Stable: Yes Hydration Status Stable: Yes Pain Control Satisfactory: Yes Nausea and Vomiting Control Satisfactory: Yes Mental Status Recovered: Yes Resp Rate: 16
[2018-07-18] MEDS: Acetaminophen/oxyCODONE 325-5 MG Tab PO PRN (23:34)
[2018-07-19] MEDS: Ibuprofen 800 MG Tab PO PRN ×2 (02:54→10:46)
--- NOTE | 2018-07-19 08:33 | PCM.DCSUM1 ---
Discharge Summary - Hospital Course Free Text/Narrative:: Discharge home with infant, follow up in 1 week for incision check and 6 weeks for post visit. Diagnosis: Stroke: No - Discharge Data Discharge Date: 07/19/18 Discharge Disposition: Home, Self-Care 01 Condition: Good - Discharge Diagnosis/Problem(s) (1) Supervision of normal IUP (intrauterine ) in primigravida SNOMED Code(s): 62025986, 240828291, 197698070, 320624528 ICD Code: Z34.00 - ENCNTR FOR SUPRVSN OF NORMAL FIRST , UNSP TRIMESTER Status: Acute Priority: High Current Visit: Yes Qualifiers: Trimester: third trimester Qualified Code(s): Z34.03 - Encounter for supervision of normal first , third trimester (2) Insulin controlled gestational diabetes mellitus (GDM) in third trimester SNOMED Code(s): 25719794 ICD Code: O24.414 - GESTATIONAL DIABETES IN , INSULIN CONTROLLED Status: Acute Priority: High Current Visit: Yes (3) delivery delivered SNOMED Code(s): 482605851 ICD Code: O82 - ENCOUNTER FOR DELIVERY WITHOUT INDICATION Status: Acute Priority: High Current Visit: Yes - Patient Summary/Data Operative Procedure(s) Performed: Primary C/section. - Patient Instructions Diet: Usual Diet as Tolerated Activity: As Tolerated, No Strenuous Activities, Rest and Relax Today Driving: Do Not Drive (for one week or if taking pain medication) Showering/Bathing: May Shower Wound/Incision Care: Keep Operative Site/Wound Site Clean and Dry Notify Provider of: Fever, Increased Pain, Swelling and Redness, Drainage, Nausea and/or Vomiting Other/Special Instructions: Discharge home with , follow up in 1 week for incision check and 6 weeks for post visit. - Discharge Plan *PRESCRIPTION DRUG MONITORING PROGRAM REVIEWED*: Not Applicable *COPY OF PRESCRIPTION DRUG MONITORING REPORT IN PATIENT TERESSA: Not Applicable Home Medications: Home Meds Pnv No.122/Iron/Folic Acid [ Multi Tablet] 1 tab PO DAILY 05/28/18 [ History] glyBURIDE [Glyburide] 2.5 mg PO TID 06/18/18 [History] Acetaminophen [Tylenol Extra Strength] 1 - 2 tab PO PRN 07/16/18 [History] Patient Handouts: Delivery, Care After Referrals: [facility] [Outside] Bernice Stewart, CNM [Mid-] - 08/22/18 10:45 am (2 week: 07/28/18 @ 1:30pm with Bernice Stewart 6 week: 08/22/18 @ 1045 with Bernice Stewart) - General Info Date of Service: 07/19/18 Admission Dx/Problem (Free Text: Patient Status Order with Admit Dx/Problem 07/16/18 03:41 Patient Status [ADT] Routine Admission Diagnosis/Problem Admission Diagnosis/Problem 07/16/18 07:36 37yo EDC 07/21/2018 39 2/7wks AB+, RI, GBS neg. IOL due to GDMA2. Functional Status: Reports: Pain Controlled, Tolerating Diet, Ambulating, Urinating - Review of Systems General: Reports: No Symptoms HEENT: Reports: No Symptoms Pulmonary: Reports: No Symptoms Cardiovascular: Reports: No Symptoms Gastrointestinal: Reports: No Symptoms Genitourinary: Reports: No Symptoms Musculoskeletal: Reports: No Symptoms Skin: Reports: No Symptoms Neurological: Reports: No Symptoms Psychiatric: Reports: No Symptoms - Patient Data Vitals - Most Recent: Last Vital Signs Temp 37.0 C 07/19/18 03:14 Pulse 94 07/19/18 03:14 Resp 20 07/19/18 03:14 BP 129/69 07/19/18 03:14 Pulse Ox 96 07/19/18 03:14 Weight - Most Recent: 121.109 kg Med Orders - Current: Current Medications Bisacodyl (Dulcolax) 10 mg RECTAL ONETIME PRN PRN Reason: Constipation Diphenhydramine HCl (Benadryl) 25 mg IVPUSH Q6H PRN PRN Reason: Itching or Nausea Docusate Sodium (Colace) 100 mg PO BID [facility] Last Admin: 07/18/18 21:23 Dose: 100 mg Emollient Ointment (Lansinoh Hpa) 0 gm TOP ASDIRECTED PRN PRN Reason: Sore Nipples Fentanyl (Sublimaze) 25 - 50 mcg IVPUSH Q30M PRN PRN Reason: Pain Oxytocin/Sodium Chloride (Oxytocin 30 Unit/500 Ml-Ns) 30 unit in 500 mls @ 999 mls/hr IV TITRATE [facility] Tranexamic Acid 1,000 mg/ (Sodium Chloride) 110 mls @ 660 mls/hr IV ONETIME PRN PRN Reason: Bleeding Lactated Ringer's (Ringers, Lactated) 1,000 mls @ 500 mls/hr IV BOLUS [facility] Oxytocin/Sodium Chloride (Oxytocin 30 Unit/500 Ml-Ns) 30 unit in 500 mls @ 250 mls/hr IV TITRATE [facility] Lactated Ringer's (Ringers, Lactated) 1,000 mls @ 125 mls/hr IV ASDIRECTED [facility] Last Admin: 07/17/18 21:15 Dose: 125 mls/hr Ibuprofen (Motrin) 800 mg PO Q8H PRN PRN Reason: mild pain or fever Last Admin: 07/19/18 02:54 Dose: 800 mg Methylergonovine Maleate (Methergine) 0.2 mg IM ASDIRECTED PRN PRN Reason: Post Hemorrhage Misoprostol (Cytotec) 200 mcg PO ONETIME PRN PRN Reason: Post Hemorrhage Ondansetron HCl (Zofran) 4 mg IV Q4H PRN PRN Reason: Nausea/Vomiting Oxycodone/Acetaminophen (Percocet 325-5 Mg) 1 tab PO Q4H PRN PRN Reason: Pain (moderate 4-6) Last Admin: 07/18/18 23:34 Dose: 1 tab Oxycodone/Acetaminophen (Percocet 325-5 Mg) 2 tab PO Q4H PRN PRN Reason: Pain (moderate 4-6) Sodium Chloride (Saline Flush) 10 ml FLUSH ASDIRECTED PRN PRN Reason: Keep Vein Open Sodium Chloride (Saline Flush) 2.5 ml FLUSH ASDIRECTED PRN PRN Reason: Keep Vein Open Discontinued Medications Acetaminophen (Tylenol Extra Strength) 1,000 mg PO Q6H PRN PRN Reason: Pain Last Admin: 07/17/18 08:14 Dose: 1,000 mg Bupivacaine HCl (Sensorcaine-Mpf 0.5%) Confirm Administered Dose 20 ml .ROUTE .STK-MED ONE Stop: 07/17/18 17:29 Carboprost Tromethamine (Hemabate Ds) 250 mcg IM ASDIRECTED PRN PRN Reason: Post Hemorrhage Cefazolin Sodium/Dextrose (Ancef) Confirm Administered Dose 2 gm IV .STK-MED ONE Stop: 07/17/18 17:57 Citric Acid/Sodium Citrate (Bicitra Solution) 30 ml PO ONETIME ONE Stop: 07/17/18 16:59 Citric Acid/Sodium Citrate (Bicitra Solution) Confirm Administered Dose 30 ml .ROUTE .STK-MED ONE Stop: 07/17/18 17:29 Last Admin: 07/17/18 17:38 Dose: 30 ml Diphenhydramine HCl (Benadryl) 25 mg IVPUSH Q4H PRN PRN Reason: Itching Stop: 07/18/18 18:36 Hydroxyzine Pamoate (Vistaril) 50 mg PO ONETIME ONE Stop: 07/16/18 04:57 Last Admin: 07/16/18 05:04 Dose: 50 mg Lactated Ringer's (Ringers, Lactated) 1,000 mls @ 150 mls/hr IV ASDIRECTED [facility] Last Infusion: 07/17/18 17:00 Dose: 999 mls/hr Oxytocin/Sodium Chloride (Oxytocin 30 Unit/500 Ml-Ns) 30 unit in 500 mls @ 2 mls/hr IV TITRATE [facility]; Protocol Last Titration: 07/17/18 14:55 Dose: 20 munits/min, 20 mls/hr Fentanyl/Bupivacaine HCl (Ugmqpllb-Fiusu-Sg 2 Mcg/Ml-0.125%) Confirm Administered Dose 100 mls @ as directed EP .STK-MED ONE Stop: 07/17/18 10:12 Cefazolin Sodium/Dextrose 2 gm (/ Premix) 50 mls @ 100 mls/hr IV ONETIME ONE Stop: 07/17/18 17:27 Oxytocin/Sodium Chloride (Oxytocin 30 Unit/500 Ml-Ns) Confirm Administered Dose 30 unit in 500 mls @ as directed .ROUTE .STK-MED ONE Stop: 07/17/18 17:29 Ketorolac Tromethamine (Toradol) 30 mg IVPUSH Q6H [facility] Stop: 07/18/18 18:46 Last Admin: 07/18/18 18:55 Dose: 30 mg Lidocaine HCl (Xylocaine 1%) 50 ml INJECT ONETIME PRN PRN Reason: Laceration repair Midazolam HCl (Versed 1 Mg/Ml) Confirm Administered Dose 2 mg .ROUTE .STK-MED ONE Stop: 07/17/18 18:01 Misoprostol (Cytotec) 25 mcg VAG Q4H PRN PRN Reason: Cervical Ripening Last Admin: 07/16/18 17:49 Dose: 25 mcg Misoprostol (Cytotec) 25 mcg PO Q4H PRN PRN Reason: Cervical Ripening Last Admin: 07/16/18 17:52 Dose: 25 mcg Morphine Sulfate (Duramorph Pf) Confirm Administered Dose 1 mg .ROUTE .STK-MED ONE Stop: 07/17/18 17:19 Nalbuphine HCl (Nubain) 10 mg IVPUSH Q1H PRN PRN Reason: Pain (severe 7-10) Last Admin: 07/16/18 23:03 Dose: 10 mg Nalbuphine HCl (Nubain) 5 mg IVPUSH Q3H PRN PRN Reason: Pruritis Stop: 07/18/18 18:36 Naloxone HCl (Narcan) 0.1 mg IVPUSH ONETIME PRN PRN Reason: Other Stop: 07/18/18 18:37 Octyl Cyanoacrylate (Dermabond Advance) Confirm Administered Dose 1 applic .ROUTE .STK-MED ONE Stop: 07/17/18 17:58 Oxycodone/Acetaminophen (Percocet 325-5 Mg) 1 - 2 tab PO Q6H PRN PRN Reason: Pain Stop: 07/19/18 14:00 Ropivacaine (Naropin 0.2%) Confirm Administered Dose 20 ml .ROUTE .STK-MED ONE Stop: 07/17/18 10:12 Sodium Chloride (Saline Flush) 10 ml FLUSH ASDIRECTED PRN PRN Reason: Keep Vein Open Sodium Chloride (Saline Flush) 2.5 ml FLUSH ASDIRECTED PRN PRN Reason: Keep Vein Open Sterile Water (Sterile Water For Irrigation) 1,000 ml IRR ASDIRECTED PRN PRN Reason: delivery Terbutaline Sulfate (Brethine) 0.25 mg SUBCUT ASDIRECTED PRN PRN Reason: Tacysystole - Exam General: Reports: Alert, Oriented, Cooperative, No Acute Distress Lungs: Reports: Clear to Auscultation, Normal Respiratory Effort Cardiovascular: Reports: Regular Rate, Regular Rhythm, No Murmurs GI/Abdominal Exam: Soft, Non-Tender (Female) Exam: Deferred, Vaginal Bleeding Rectal (Female) Exam: Normal Exam, Normal Rectal Tone Back Exam: Reports: Normal Inspection, Full Range of Motion Extremities: Normal Inspection, Normal Range of Motion, Non-Tender, No Pedal Edema, Normal Capillary Refill Skin: Reports: Warm, Dry, Intact Wound/Incisions: Reports: Healing Well, No Drainage Neurological: Reports: No New Focal Deficit, Normal Gait, Normal Speech, Normal Tone, Strength Equal Bilateral Psy/Mental Status: Reports: Alert, Normal Affect, Normal Mood
[2018-07-19 09:26] VITALS: BP 126/66
[2018-07-19] MEDS: Acetaminophen/oxyCODONE 325-5 MG Tab PO PRN (10:42)
[2018-07-19] MEDS: Docusate Sodium 100 MG Cap PO SCH (10:42)
== END 2018-07-19 12:45 | disposition home or self-care (01) | DRG 540 ==
LOC: MW.OBCHECK 03:09 → MW.OB 03:13 → MW.OBCHECK 03:41 → MW.OB 03:41 → OBSVTOIN 07-17 18:13 → MW.OB 07-17 22:31
PROVIDERS: ADMIT Obstetrics & Gynecology; ATTEND Obstetrics & Gynecology
PROC: 10D00Z1 Extraction of Products of Conception, Low, Open Approach (ICD-10-PCS; principal; 2018-07-17)
PROC: 3E0P7VZ Introduction of Hormone into Female Reproductive, Via Natural or Artificial Opening (ICD-10-PCS; 2018-07-17)
PROC: 3E033VJ Introduction of Other Hormone into Peripheral Vein, Percutaneous Approach (ICD-10-PCS; 2018-07-17)
DX: O24.424 Gestational diabetes mellitus in childbirth, insulin controlled (principal); O61.0 Failed medical induction of labor; O09.523 Supervision of elderly multigravida, third trimester; Z3A.39 39 weeks gestation of pregnancy; Z37.0 Single live birth
CPT/HCPCS: 36415; 51702; 59025; 82962; 85014; 85018; 85027; 86850; 86900; 86901; A9270-GY; J0690; J1885; J2250; J2274; J2300; J2590; J7120

== ENCOUNTER 2020-03-23 10:41 | Emergency (ER) | payer BC ==
--- NOTE | 2020-03-23 11:11 | EDM.PDOC ---
ED HPI GENERAL MEDICAL PROBLEM - General Chief Complaint: Bite:Animal, Insect Stated Complaint: CAT BITE Time Seen by Provider: 03/23/20 10:52 Source of Information: Reports: Patient History Limitations: Reports: No Limitations - History of Present Illness INITIAL COMMENTS - FREE TEXT/NARRATIVE: HISTORY AND PHYSICAL: History of present illness: Patient is a 39-year-old female who presents to the emergency room today with concerns of possible rabies exposure due to a cat bite. 3 to 4 days ago she had found a kitten and had several superficial scratches and puncture sites to bilateral hands from holding it. She did call her primary care provider who prescribed her Augmentin. She has had no skin concerns today. She states she started to research rabies on the Internet and became concerned that she may have been exposed. The [facility] has been [facility] to be [facility], she was told so far there have been no symptoms noted from the cat. Patient denies any fever, chills, headache, change in vision, syncope or near syncope. Denies any chest pain, back pain, shortness of breath or cough. Denies any GI or symptoms. Patient has been eating and drinking appropriately. Tdap UTD Review of systems: As per history of present illness and below otherwise all systems reviewed and negative. Past medical history: As per history of present illness and as reviewed below otherwise noncontributory. Surgical history: As per history of present illness and as reviewed below otherwise noncontributory. Social history: See social history for further information Family history: As per history of present illness and as reviewed below otherwise noncontributory. Physical exam: General: Well-developed and well-nourished 39-year-old female. Alert and oriented. Nontoxic-appearing and in no acute distress. HEENT: Atraumatic, normocephalic, pupils equal and reactive bilaterally, negative for conjunctival pallor or scleral icterus, mucous membranes moist, TMs normal bilaterally, throat clear, neck supple, nontender, trachea midline. No drooling or trismus noted. No meningeal signs. No hot potato voice noted. Lungs: Clear to auscultation, breath sounds equal bilaterally, chest nontender. Heart: S1S2, regular rate and rhythm without overt murmur Abdomen: Soft, nondistended, nontender. Negative for masses or hepatosplenomegaly. Negative for costovertebral tenderness. Pelvis: Stable nontender. Skin: Right thumb healing puncture wound without any surrounding erythema. Superficial scratches which are healing noted to bilateral hands. Otherwise skin is intact, warm, dry. No lesions or rashes noted. Extremities: Atraumatic, moves all extremities per self without difficulty or deficits, negative for cords or calf pain. Neurovascular unremarkable. Neuro: Awake, alert, oriented. Cranial nerves II through XII unremarkable. Cerebellum unremarkable. Motor and sensory unremarkable throughout. Exam nonfocal. Notes: Patient is currently on the appropriate antibiotic. Skin does not appear erythematous, no need for further treatment other than the medication she is currently on. I did give her education on rabies and she would like to proceed with the rabies series. Supportive care measures were reviewed and discussed. Voices understanding and is agreeable to plan of care. Denies any further questions or concerns at this time. Diagnostics: None Therapeutics: Rabies series Prescription: Rabies series (outpatient) Impression: Requesting rabies vaccine post animal bite Plan: 1. Keep the skin clean and dry. Continue to monitor for signs of improvement. You will need the repeat Rabies vaccine on 03/26, 03/30, and 04/06. 2. Continue taking your antibiotic as directed 3. Follow up with your primary care provider as we discussed. Return to the ED as needed. Definitive disposition and diagnosis as appropriate pending reevaluation and review of above. hands Pain Score (Numeric/FACES): 1 - Related Data Allergies Allergy/AdvReac Type Severity Reaction Status Date / Time No Known Allergies Allergy Verified 03/23/20 11:07 Home Meds: Home Meds . [No Known Home Meds] 03/23/20 [History] Past Medical History - Past Health History Medical/Surgical History: Denies Medical/Surgical History HEENT History: Reports: Impaired Vision, Other (See Below) Other HEENT History: wears glasses [employer] History: Reports: , Spontaneous Psychiatric History: Reports: Depression Endocrine/Metabolic History: Reports: Diabetes, Gestational, Obesity/BMI 30+ - Infectious Disease History Infectious Disease History: Reports: Chicken Pox - Past Surgical History HEENT Surgical History: Reports: None Endocrine Surgical History: Reports: None Social & Family History - Family History Family Medical History: Noncontributory Cardiac: Reports: Other (See Below) Other Cardiac Family History: heart disease Respiratory: Reports: Asthma OBGYN: Reports: Neurological: Reports: CVA Endocrine/Metabolic: Reports: Diabetes, type II Oncologic: Reports: Other (See Below) Other Oncologic Family History: grandmother has cancer in her spine - Caffeine Use Caffeine Use: Reports: Coffee, Energy Drinks, Tea ED ROS GENERAL - Review of Systems Review Of Systems: Comprehensive ROS is negative, except as noted in HPI. ED EXAM, ANIMAL BITE - Physical Exam Exam: See Below (See dictation) Course - Vital Signs Last Recorded V/S: Last Vital Signs Temp 98.0 F 03/23/20 11:03 Pulse 101 H 03/23/20 11:03 Resp 16 03/23/20 11:03 BP 123/89 03/23/20 11:03 Pulse Ox 95 03/23/20 11:03 - Orders/Labs/Meds Orders: Active Orders 24 hr Category Date Time Status Vaccines to be Administered [RC] PER UNIT ROUTINE Care 03/23/20 11:20 Ordered Meds: Medications Discontinued Medications Generic Name Dose Route Start Last Admin Trade Name Freq PRN Reason Stop Dose Admin Rabies Immune Globulin 2,020 unit 03/23/20 11:16 Hyperrab S/D IM 03/23/20 11:17 ONETIME ONE Rabies Vaccine Human Diploid Cell 2.5 unit 03/23/20 11:16 Imovax Rabies IM 03/23/20 11:17 .ONCE ONE Departure - Departure Time of Disposition: 11:24 Disposition: Home, Self-Care 01 Clinical Impression: Need for post exposure prophylaxis for rabies - Discharge Information Referrals: Dayne Ramon MD [Primary Care Provider] - Forms: ED Department Discharge Additional Instructions: The following information is given to patients seen in the emergency department who are being discharged to home. This information is to outline your options for follow-up care. We provide all patients seen in our emergency department with a follow-up referral. The need for follow-up, as well as the timing and circumstances, are variable depending upon the specifics of your emergency department visit. If you don't have a primary care physician on staff, we will provide you with a referral. We always advise you to contact your personal physician following an emergency department visit to inform them of the circumstance of the visit and for follow-up with them and/or the need for any referrals to a consulting specialist. The emergency department will also refer you to a specialist when appropriate. This referral assures that you have the opportunity for follow-up care with a specialist. All of these measure are taken in an effort to provide you with optimal care, which includes your follow-up. Under all circumstances we always encourage you to contact your private physician who remains a resource for coordinating your care. When calling for follow-up care, please make the office aware that this follow-up is from your recent emergency room visit. If for any reason you are refused follow-up, please contact the [facility] Emergency Department at and asked to speak to the emergency department charge nurse. [facility] [address] [place] [address] [facility] [address] [place] [id number] 1. Keep the skin clean and dry. Continue to monitor for signs of improvement. You will need the repeat Rabies vaccine on 03/26, 03/30, and 04/06. 2. Continue taking your antibiotic as directed 3. Follow up with your primary care provider as we discussed. Return to the ED as needed. Sepsis Event Note (ED) - Focused Exam Vital Signs: Vital Signs Temp Pulse Resp BP Pulse Ox 03/23/20 11:03 98.0 F 101 H 16 123/89 95 - My Orders Last 24 Hours: My Active Orders 03/23/20 11:20 Vaccines to be Administered [RC] PER UNIT ROUTINE - Assessment/Plan Last 24 Hours: My Active Orders 03/23/20 11:20 Vaccines to be Administered [RC] PER UNIT ROUTINE
[2020-03-23] MEDS ORDERED: Rabies Immune Globulin PF 150 Units/ML 10 ML SDV IM ONE ×2 (11:16→12:00)
[2020-03-23] MEDS ORDERED: Rabies Vaccine, Human Diploid Cell PF 2.5 Unit SDV IM ONE ×2 (11:16→12:00)
[2020-03-23 12:57] VITALS: BP 99/68; PULSE 94
== END 2020-03-23 13:08 | disposition home or self-care (01) ==
LOC: MW.ED 10:41
DX: Z29.14 Encounter for prophylactic rabies immune globulin (principal); E66.9 Obesity, unspecified; Z68.37 Body mass index [BMI] 37.0-37.9, adult
CPT/HCPCS: 90375; 90675; 96372; 99282; 99283

== ENCOUNTER 2024-09-22 02:12 | Emergency (ER) | payer OTHER ==
[2024-09-22 03:17] VITALS: BP 115/77; PULSE 83
== END 2024-09-22 02:56 | disposition home or self-care (01) ==
LOC: MW.ED 02:12
DX: B34.9 Viral infection, unspecified (principal); E66.9 Obesity, unspecified; Z86.16 Personal history of COVID-19; Z79.899 Other long term (current) drug therapy; Z68.41 Body mass index [BMI] 40.0-44.9, adult
CPT/HCPCS: 93005; 99284